=== PATIENT | female | born 1955 | race Caucasian/White ===

== ENCOUNTER 2017-02-09 10:53 | Observation (INO) | payer MEDICARE ==
[2017-02-09] MEDS ORDERED: NS 0.9% 1000 ML* 1,000 ML IV ONE (11:59)
[2017-02-09] MEDS ORDERED: Albuterol/Ipratropium NEB.SOL* Albuterol 2.5 MG/Ipratropium 0.5 MG 3 ML INH ONE ×2 (12:36→14:22)
[2017-02-09] MEDS ORDERED: methylPREDNISolone SOD SUCC* 125 MG 2 ML VIAL IV ONE (12:36)
--- NOTE | 2017-02-09 13:12 | RAD ---
HISTORY: Shortness of breath COMPARISONS: February 05, 2017 VIEWS: 2: Frontal dual-energy and lateral views of the chest. FINDINGS: CARDIOMEDIASTINAL SILHOUETTE: The cardiomediastinal silhouette is normal. FRANCY: The francy are normal. PLEURA: The costophrenic angles are sharp. No pleural abnormalities are noted. LUNG PARENCHYMA: The lungs are clear. There is improved aeration of the left lower lobe. ABDOMEN: The upper abdomen is clear. There is no subphrenic gas. BONES AND SOFT TISSUES: No bone or soft tissue abnormalities are noted. OTHER: None. IMPRESSION: NO ACTIVE CARDIOPULMONARY DISEASE.
[2017-02-09 13:14] LABS: Add Diff/Slide Review? Slide Review Added; Comments Flag Yes; Hematocrit 38 % (35-47); Mean Corpuscular HGB Conc 34 g/dl (31-36); Mean Corpuscular Hemoglobin 30 pg (27-31); Mean Corpuscular Volume 90 fL (80-97); Mean Platelet Volume 8 um3 (7.4-10.4); Red Blood Count 4.27 10^6/ul (4.0-5.4); Red Cell Distribution Width 13 % (10.5-15); White Blood Count 13.8 10^3/ul (3.5-10.8)
[2017-02-09 13:36] LABS: Albumin 3.4 g/dL (3.2-5.2); BUN/Creatinine Ratio 11.5 (8-20); C Reactive Protein 65.77 mg/L (< 5.00); Calcium 8.8 mg/dL (8.6-10.3); EGFR African American 128.2 (>60); EGFR Non-African American 99.7 (>60); Potassium 3.2 mmol/L (3.5-5.0); Total Protein 7.4 g/dL (6.4-8.9)
[2017-02-09 13:39] LABS: Troponin I 0.01 ng/mL (<0.04)
[2017-02-09 13:48] LABS: Urine Bacteria 1+ (Absent); Urine Bilirubin Negative (Negative); Urine Glucose Negative (Negative); Urine Nitrite Negative (Negative)
[2017-02-09 14:09] LABS: Immature Granulocytes 7 % (0-9); Metamyelocytes % 2 % (0-2); Myelocytes % 5 % (0-1); Neutrophil % 67 % (38-83)
[2017-02-09 14:11] LABS: RBC Morphology Normal (Normal)
[2017-02-09] MEDS ORDERED: Levofloxacin 750 MG IVPREMIX(* 750 MG/150 ML BAG IVPB ONE (15:27)
[2017-02-09] MEDS ORDERED: Potassium Chlor TAB* 20 MEQ TAB.ER PO ONE (15:27)
[2017-02-09] MEDS ORDERED: NS 0.9% 1000 ML* 1,000 ML IV SCH (15:45)
[2017-02-09] MEDS ORDERED: Albuterol/Ipratropium NEB.SOL* Albuterol 2.5 MG/Ipratropium 0.5 MG 3 ML INH PRN (16:21)
[2017-02-09] MEDS ORDERED: Benzonatate CAP* 100 MG PO PRN (16:42)
[2017-02-09] MEDS ORDERED: Albuterol/Ipratropium NEB.SOL* Albuterol 2.5 MG/Ipratropium 0.5 MG 3 ML INH SCH (19:00)
[2017-02-09] MEDS: Mometasone/Formoter 200/5 MDI INH SCH (20:34)
[2017-02-09] MEDS: Heparin VIAL(*) 5000 UNITS/ML VIAL (FIVE THOUSAND) SUBCUT SCH (20:47)
[2017-02-09] MEDS ORDERED: Atorvastatin* 20 MG TAB PO SCH (21:00)
--- NOTE | 2017-02-09 23:32 | HP ---
HISTORY AND PHYSICAL: DATE OF ADMISSION: 02/09/17 AGE: 61. PRIMARY CARE PROVIDER: Nghia Nuno MD ATTENDING PHYSICIAN: Nathan Grimm MD* (dictated by Cash Patterson NP) CHIEF COMPLAINT: Cough and weakness. HISTORY OF PRESENT ILLNESS: Ms. Maya is a 61-year-old female with past medical history significant for coronary artery disease status post ID with stent placement in 2007, who developed a nonproductive cough approximately 2 weeks ago. The patient was initially diagnosed with bronchitis by her primary care provider and then was later diagnosed with influenza and started on Tamiflu and prednisone. According to the patient, her flu-like symptoms have resolved, but she has continued to have a cough. She reports seeing her primary care provider several times and she states she had a chest x-ray on 08/14, at which time she was diagnosed with pneumonia. The patient was seen again by her primary care provider, Dr. Nuno, yesterday on 02/08/17 in which she was started on Levaquin. The patient has completed a course of azithromycin and Medrol Dosepak. The patient states that she was told to see her primary care provider in 2 days and if she was not feeling well, to report to the emergency room. While in the emergency room, the patient had labs significant for white blood cell count of 13.9, potassium of 3.2, chloride of 96, lactic acid of 2.2, CRP of 65.7. The patient had a chest x-ray showing no acute cardiopulmonary disease. While in the emergency room, the patient received 2 DuoNebs and IV Solu-Medrol. The patient had significant wheezing and was felt to have a COPD exacerbation. Hospitalists were asked to evaluate the patient for admission. The patient denies any recent fever, chills, chest pain, nausea, vomiting, diarrhea. The patient reports a poor appetite. She denies any urinary symptoms. The patient reports a nonproductive cough. The patient reports mild shortness of breath with exertion, but denies shortness of breath at rest. PAST MEDICAL HISTORY: 1. Coronary artery disease. 2. Myocardial infarction. 3. Hepatitis C. PAST SURGICAL HISTORY: Status post cardiac catheterization with a stent to the distal circumflex coronary artery in 2007. HOME MEDICATIONS: Include: 1. Aspirin 81 mg oral daily. 2. Simvastatin 40 mg oral daily. 3. Toprol-XL 25 mg oral daily. 4. Guaifenesin and codeine 2 teaspoons by mouth every 4 hours as needed for cough. 5. Levaquin 500 mg oral daily. 6. Tessalon 100 mg by mouth 3 times daily as needed for cough. ALLERGIES: IV CONTRAST DYE, the patient reports sensitivity to CODEINE if she takes it in large amounts, but is able to tolerate it in small amounts. FAMILY HISTORY: The patient reports significant family history of coronary artery disease including both of her parents, grandmother and uncle. The patient denies any family history of diabetes mellitus. The patient reports that her maternal grandmother had a history of stomach carcinoma. SOCIAL HISTORY: The patient is a former smoker, smoking approximately half a pack to a pack a day for the last 45 years. She reports quitting approximately 2 weeks ago when she became ill. The patient denies alcohol or recreational drug use. 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 The patient is and lives with her . Her , Rory Maya, will be her surrogate decision maker in the event she is unable to make decisions for herself. REVIEW OF SYSTEMS: I performed a 14-point review of systems. All the pertinent positives and negatives are mentioned in the history of present illness. The remaining review of systems is negative. PHYSICAL EXAMINATION GENERAL APPEARANCE: The patient is alert and pleasant, appears to be in no acute distress. VITAL SIGNS: Temperature 98.4, heart rate 77, respiratory rate 18, O2 sat 94% on 2 L via nasal cannula, blood pressure 100/59. HEENT: Normocephalic, atraumatic. Pupils are equal and reactive to light. Extraocular movements are intact. RESPIRATORY: There is no accessory muscle use, though lungs have decreased breath sounds, a few crackles heard in bilateral bases and a few scattered expiratory wheezes. CARDIOVASCULAR: Regular rate and rhythm. S1 and S2 present. There is no murmurs, rubs, or gallops heard. ABDOMEN: Soft, nontender, and nondistended. There are bowel sounds present x4. EXTREMITIES: There is no lower extremity edema. DP and PT pulses are 2+ and symmetric. MUSCULOSKELETAL: There is no clubbing or cyanosis noted. The patient exhibits good strength in all extremities. NEUROLOGICAL : The patient is alert and oriented x4. Cranial nerves II through XII are grossly intact. SKIN: There are no rashes or abnormalities seen. DIAGNOSTIC STUDIES/LABORATORY DATA: Sodium 135, potassium 2.2, chloride 96, CO2 30, BUN 7, creatinine 0.61, glucose 91. White blood cell count 13.8, hemoglobin 13.0, hematocrit 38, platelet count 422. Lactic acid 2.2, CRP 65.77. Urinalysis is significant for specific gravity of 1.005, blood 1+, urobilinogen positive, leukocyte esterase 3+, wbc's 3+, rbc's 3+, squamous epithelial cells present, bacteria 1+. EKG shows a sinus rhythm with rate of 55. No signs of acute ischemia noted. There are no previous EKGs for comparison. Chest x-ray from today showed radiologist's impression: No active cardiopulmonary disease. IMPRESSION: Ms. Maya is a 61-year-old female with past medical history significant for undiagnosed chronic obstructive pulmonary disease, coronary artery disease who presents to the emergency room with continued cough and weakness after being treated for influenza pneumonia as an outpatient. Hospitalists were asked to evaluate the patient for admission. ASSESSMENT: 1. Chronic obstructive pulmonary disease exacerbation. I suspect the patient' s cough is related to a chronic obstructive pulmonary disease exacerbation. We will continue the patient on Levaquin. She currently has a mildly elevated white blood cell count. I suspect this is caused by her recent steroid use. The patient reports a nonproductive cough. The patient will be started on Dulera and Spiriva and will have DuoNebs as needed. The patient will be given supplemental oxygen as needed. We will give the patient an additional liter of fluid overnight as she appears to be slightly on the dry side. She was noted to have O2 sat of 88% on room air. I do not suspect that her shortness of breath currently represents pulmonary embolism as the patient is not tachycardiac. The patient also had significant wheezing while in the emergency room. I do not feel that this is pulmonary embolism as the patient is not hypoxic or tachycardic. I suspect the lower oxygen saturation of 88% may likely be close to the patient's baseline oxygen saturation. 2. Hypokalemia. The patient will receive potassium supplement while in the emergency room. We will check the patient's magnesium and replace if needed and recheck labs in the morning. 3. History of coronary artery disease. The patient will be continued on her home aspirin, statin and beta-ten. 4. Fluids, electrolytes, and nutrition. The patient will be on a heart healthy diet. 5. DVT prophylaxis. The patient is at high risk and will receive subcu heparin. 6. Code status. Full code. 7. Disposition: Observation for chronic obstructive pulmonary disease exacerbation. TIME SPENT: Time for this admission was 60 minutes and 35 minutes were spent with the patient discussing medications, past medical history and the events leading up to her arrival today and performing a physical examination. The case was reviewed with the attending, Dr. Grimm, who agrees with the plan of care. CASH CANNON NP CC: Nghia Nuno MD* [id number]/CPS #: [id number] MTDD
[2017-02-09] MEDS: guaiFENesin/CODIEN 100MG-10MG* 5 ML UDC PO PRN (23:37)
[2017-02-10] MEDS: guaiFENesin/CODIEN 100MG-10MG* 5 ML UDC PO PRN (03:46)
[2017-02-10 06:47] LABS: Hematocrit 36 % (35-47); Hemoglobin 12.4 g/dl (12.0-16.0); Mean Corpuscular HGB Conc 34 g/dl (31-36); Mean Corpuscular Hemoglobin 31 pg (27-31); Mean Corpuscular Volume 90 fL (80-97); Mean Platelet Volume 8 um3 (7.4-10.4); Red Blood Count 4.05 10^6/ul (4.0-5.4); Red Cell Distribution Width 13 % (10.5-15); White Blood Count 15.1 10^3/ul (3.5-10.8)
[2017-02-10 06:53] LABS: Add Diff/Slide Review? Slide Review Added; Comments Flag Yes
[2017-02-10 06:58] LABS: BUN/Creatinine Ratio 18.2 (8-20); Calcium 8.8 mg/dL (8.6-10.3); EGFR African American 144.5 (>60); EGFR Non-African American 112.4 (>60); Potassium 4.1 mmol/L (3.5-5.0)
[2017-02-10 07:20] VITALS: BP 123/44
[2017-02-10] MEDS: Heparin VIAL(*) 5000 UNITS/ML VIAL (FIVE THOUSAND) SUBCUT SCH (07:29)
[2017-02-10] MEDS: Mometasone/Formoter 200/5 MDI INH SCH (08:02)
--- NOTE | 2017-02-10 08:10 | ED ---
Radha Gonsalves Matthew, scribed for Antony Braswell MD on 02/09/17 at 1159 . Respiratory - HPI Summary HPI Summary: A 61 y/o female presents to the ED with a non-productive cough for the past 2 weeks. The patient states she was initially Dx with bronchitis but was later Dx by her PCP with the flu and given Tamiflu and prednisone. The flu like symptoms have improved according to the patient, but she continues to have a cough. She was then started on zithromax, which she has finished and now is on Levaquin. She denies PMHx of COPD and asthma. The patient has a Hx of one stent. FHx of CAD. The patient is an every day smoker. - History of Current Complaint Chief Complaint: EDUpperRespComplaint Stated Complaint: COUGH/WEAKNESS Time Seen by Provider: 02/09/17 11:47 Hx Obtained From: Patient Onset/Duration: Gradual Onset, Lasting Weeks, Still Present Timing: Constant Initial Severity: Moderate Current Severity: Moderate Pain Intensity: 0 Character: Cough (Nonproductive) Associated Signs and Symptoms: Negative - Allergy/Home Medications Allergies/Adverse Reactions: Allergies Allergy/AdvReac Type Severity Reaction Status Date / Time dye Allergy Rash Uncoded 02/09/17 16:06 Home Medications: Home Medications Aspirin EC Low Dose* [Ecotrin EC Low Dose 81 MG*] 81 mg PO DAILY 02/09/17 [ History Confirmed 02/09/17] Benzonatate CAP* [Tessalon 100 MG CAP*] 100 - 200 mg PO TID PRN 02/09/17 [ History Confirmed 02/09/17] Guaifenesin-Codeine [Cheratussin AC] 2 teasp PO Q4HR PRN 02/09/17 [History Confirmed 02/09/17] Levofloxacin TAB* [Levaquin TAB*] 500 mg PO DAILY 02/09/17 [History Confirmed ] Metoprolol Succinate XL TAB* [Toprol XL TAB*] 25 mg PO DAILY 02/09/17 [History Confirmed 02/09/17] Simvastatin (NF) [Zocor (NF)] 40 mg PO EVERY OTHER DAY 02/09/17 [History Confirmed 02/09/17] Simvastatin (NF) [Zocor (NF)] 80 mg PO EVERY OTHER DAY 02/09/17 [History Confirmed 02/09/17] PMH/Surg Hx/FS Hx/Imm Hx Cardiovascular History: Reports: Hx Hypercholesterolemia, Hx Hypertension, Other Cardiovascular Problems/Disorders - Hx of one stent Neurological History: Denies: Other Neuro Impairments/Disorders Infectious Disease History: No Infectious Disease History: Reports: Hx Hepatitis - C Denies: Traveled Outside the [place] in Last 30 Days - Family History Known Family History: Positive: Cardiac Disease - Social History Alcohol Use: None Substance Use Type: Reports: None Smoking Status (MU): Current Every Day Smoker Type: Cigarettes - 10 per day Review of Systems Constitutional: Negative Eyes: Negative ENT: Negative Cardiovascular: Negative Positive: Cough - non-productive Gastrointestinal: Negative Genitourinary: Negative Musculoskeletal: Negative Skin: Negative Neurological: Negative Psychological: Normal All Other Systems Reviewed And Are Negative: Yes Physical Exam - Summary Physical Exam Summary: VITAL SIGNS: Reviewed. GENERAL: Patient is a well developed and nourished female with some distress secondary to the shortness of breath. However, she is able to speak in full sentences. HEAD AND FACE: Normocephalic and atraumatic. EYES: PERRLA, EOMI x 2, No injected conjunctiva. EARS: Hearing grossly intact. Ear canals and tympanic membranes WNL MOUTH: Dry oral mucosa. NECK: Supple, trachea is midline, no adenopathy, no JVD, no carotid bruit. CHEST: Symmetric, No intercostal or abdominal retraction, LUNGS: Diffuse bilateral wheezing and decreased breath sounds.No crackles. CVS: RRR,, S1 and S2 present, no murmurs or gallops appreciated. ABDOMEN: Soft, non-tender. No signs of distention. Positive BS. No rebound, no guarding, and no masses palpated. EXTREMITIES: FROM in all major joints, no edema, no cyanosis or clubbing. NEURO: Alert and oriented x 3. No acute neurological deficits. Speech is normal and follows commands. SKIN: Dry and warm Triage Information Reviewed: Yes Vital Signs On Initial Exam: Initial Vitals Temp Pulse Resp BP Pulse Ox 98.4 F 79 20 126/52 88 02/09/17 10:59 02/09/17 10:59 02/09/17 10:59 02/09/17 10:59 02/09/17 10:59 Vital Signs Reviewed: Yes Diagnostics - Vital Signs Vital Signs Temp Pulse Resp BP Pulse Ox 02/09/17 11:32 20 02/09/17 11:25 66 94 02/09/17 11:20 98.4 F 79 20 124/67 88 02/09/17 11:16 98.4 F 79 20 126/52 92 02/09/17 10:59 98.4 F 79 20 126/52 88 - Laboratory Result Diagrams: 02/10/17 06:24 02/10/17 06:24 Lab Statement: Any lab studies that have been ordered have been reviewed, and results considered in the medical decision making process. - Radiology CXR Xray Interpretation: No Acute Changes - IMPRESSION: NO ACTIVE CARDIOPULMONARY DISEASE. Radiology Interpretation Completed By: Radiologist - EKG 11:29 Cardiac Rate: NL - 65 bpm EKG Rhythm: Sinus Rhythm EKG Interpretation: No ST elevation Disposition - Course Assessment/Plan: A 61 y/o female presents to the ED with a non-productive cough for the past 2 weeks. The patient states she was initially Dx with bronchitis but was later Dx by her PCP with the flu and given Tamiflu and prednisone. The flu like symptoms have improved according to the patient, but she continues to have a cough. She was then started on Zithromax, which she has finished and now is on Levaquin. She denies PMHx of COPD and asthma. The patient has a Hx of one stent. FHx of CAD. The patient is an every day smoker. Blood work WNL except WBC of 13.9. Potassium 3.2, chloride 96, lactic acid 2.2 CRP 65.7. CXR shows no acute cardiopulmonary disease. In the ED course, the patient was given multiple DuoNeb and solumedrol. I believe the patient is having wheezing secondary to COPD excerebration. After these medications, the patient continued to have wheezing and is not feeling well. So, I discussed my physical exam findings with Dr. Rock who accepted the patient for admission. The patient was given one dose of Levaquin and potassium. I dont believe the patient has a PE since the patient is not tachycardiac or hypoxic. No ACS since the patient is not having chest pain and the troponin is negative. Patient is hemodynamically stable and A&Ox3. - Differential Dx - Cardiopulmonary Differential Diagnoses - Cardiopulmonary: Bronchitis, CHF, Exacerbation Of COPD , Influenza - Diagnoses Provider Diagnoses: COPD exacerbation - Physician Notifications Discussed Care Of Patient With: Dr. Rock (Hospitalist) at 14:54 -- Notified of patient's history and will admit the patient into his services. Discharge - Discharge Plan Condition: Stable Disposition: ADMITTED TO [facility] documentation as recorded by the Radha barron Matthew accurately reflects the service I personally performed and the decisions made by me, Antony Braswell MD.
[2017-02-10] MEDS ORDERED: Tiotropium CAP.INH* CAP.INH/18 MCG INH SCH (09:00)
[2017-02-10] MEDS ORDERED: methylPREDNISolone SOD SUCC* 125 MG 2 ML VIAL IV SCH (09:00)
[2017-02-10] MEDS ORDERED: Spiriva Inhaler DEVICE* 1 EACH DEVICE INH ONE (09:00)
[2017-02-10] MEDS ORDERED: Aspirin EC Low Dose* 81 MG TAB.EC PO SCH (09:00)
[2017-02-10] MEDS ORDERED: Metoprolol Succinate XL TAB* 25 MG PO SCH (09:00)
--- NOTE | 2017-02-10 09:57 | PN ---
Subjective Date of Service: 02/10/17 Interval History: Patient seen and examined at bedside. Pt states that she is feeling better today and is anxious to get home. Occasionally has a moist non-productive cough. Denies fever, chills, shortness of breath at rest, chest discomfort, N/V/ D. Pt reports that she has been able to ambulate in the halls with minimal shortness of breath. Family History: Unchanged from Admission Social History: Unchanged from Admission Past Medical History: Unchanged from Admission Objective Active Medications: Albuterol/Ipratropium (Duoneb (Albuterol 2.5 Mg/Ipratropium 0.5 Mg)) 1 neb INH Q4H PRN Reason: SOB/WHEEZING Aspirin (Aspirin Ec Low Dose*) 81 mg PO DAILY SHASHANK Atorvastatin Calcium (Lipitor*) 20 mg PO BEDTIME SHASHANK Benzonatate (Tessalon Cap*) 100 mg PO TID PRN Reason: COUGH Guaifenesin/Codeine Phosphate (Robitussin Ac 100mg-10mg*) 10 ml PO Q4HR PRN Reason: COUGH Heparin Sodium (Porcine) (Heparin Vial(*)) 5,000 units SUBCUT Q12HR SHASHANK Levofloxacin/Dextrose (Levaquin 750 Mg Ivpremix(*)) 750 mg in 150 mls @ 100 mls /hr IVPB Q24H SHASHANK Methylprednisolone Sodium Succinate (Solu-Medrol*) 60 mg IV DAILY SHASHANK Metoprolol Succinate (Toprol Xl Tab*) 25 mg PO DAILY SHASHANK Mometasone Furoate/Formoterol Fumar (Dulera 200/5 Mdi*) 2 puff INH BID SHASHANK Tiotropium [place] (Spiriva Cap.Inh*) 1 cap INH DAILY SHASHANK Vital Signs 02/09/17 02/09/17 02/09/17 15:00 15:14 15:30 Temperature Pulse Rate 85 Respiratory 19 18 16 Rate Blood Pressure 100/59 (mmHg) O2 Sat by Pulse 90 Oximetry 02/09/17 02/09/17 02/09/17 15:45 15:46 16:00 Temperature Pulse Rate 84 87 Respiratory 18 23 23 Rate Blood Pressure 118/54 119/52 (mmHg) O2 Sat by Pulse 91 90 Oximetry 02/09/17 02/09/17 02/09/17 16:15 16:30 16:42 Temperature 98.3 F Pulse Rate 92 Respiratory 16 21 18 Rate Blood Pressure 141/58 (mmHg) O2 Sat by Pulse 95 Oximetry 02/09/17 02/09/17 02/09/17 17:21 19:45 20:35 Temperature 98.3 F 99.1 F Pulse Rate 92 91 92 Respiratory 18 16 Rate Blood Pressure 141/58 116/61 (mmHg) O2 Sat by Pulse 95 91 94 Oximetry 02/09/17 02/10/17 02/10/17 23:28 03:22 06:00 Temperature 97.9 F 98.0 F Pulse Rate 80 69 70 Respiratory 16 16 Rate Blood Pressure 134/56 149/87 (mmHg) O2 Sat by Pulse 95 92 97 Oximetry 02/10/17 02/10/17 07:20 08:06 Temperature 98.0 F Pulse Rate 91 78 Respiratory 15 Rate Blood Pressure 123/44 (mmHg) O2 Sat by Pulse 98 94 Oximetry Oxygen Devices in Use Now: None Appearance: NAD, sitting up in bed Eyes: No Scleral Icterus Ears/Nose/Mouth/Throat: Mucous Membranes Moist Respiratory: Symmetrical Chest Expansion and Respiratory Effort, Clear to Auscultation - , few scattered crackles in the bases Cardiovascular: NL Sounds; No Murmurs; No JVD, RRR Abdominal: NL Sounds; No Tenderness; No Distention Extremities: No Edema Skin: No Rash or Ulcers Neurological: Alert and Oriented x 3, NL Muscle Strength and Tone Lines/Tubes/Other Access: Clean, Dry and Intact Peripheral IV - site benign Nutrition: Taking PO's Result Diagrams: 02/10/17 06:24 02/10/17 06:24 Assess/Plan/Problems-Billing Assessment: Ms. Maya is a 61 yo female with PMH significant for CAD and presumed undiagnosed COPD who presented to the emergency room with complaints of cough and weakness and was admitted as an OBV for a COPD exacerbation. - Patient Problems (1) COPD exacerbation Code(s): J44.1 - CHRONIC OBSTRUCTIVE PULMONARY DISEASE W (ACUTE) EXACERBATION SNOMED Code(s): 957360393 Comment: - Patient feels improved this morning - Afebrile - Leukocytosis, suspect this is related to recent steroid use - Denies shortness of breath and has been able to ambulate in the halls - Continue Levaquin and Prednisone taper - Continue Dulera and Spiriva (2) Hypokalemia Code(s): E87.6 - HYPOKALEMIA SNOMED Code(s): 38682899 Comment: - Resolved (3) History of coronary artery disease Code(s): Z86.79 - PERSONAL HISTORY OF OTHER DISEASES OF THE CIRCULATORY SYSTEM SNOMED Code(s): 203156414 Comment: - Continue ASA, statin and beta-ten (4) DVT prophylaxis Code(s): TJN3689 - SNOMED Code(s): 176630899 (5) Full code status Code(s): Z78.9 - OTHER SPECIFIED HEALTH STATUS SNOMED Code(s): 844620722 Status and Disposition: OBV. Stable for discharge to home today.
[2017-02-10] MEDS ORDERED: Levofloxacin 750 MG IVPREMIX(* 750 MG/150 ML BAG IVPB SCH (17:00)
--- NOTE | 2017-02-11 06:03 | DS ---
DISCHARGE SUMMARY: DATE OF ADMISSION: 02/09/17 DATE OF DISCHARGE: 02/10/17 ATTENDING PHYSICIAN: Teto Vital MD* (dictated by Cash Patterson NP) PRIMARY CARE PROVIDER: Nghia Nuno MD PRIMARY DIAGNOSES: 1. Chronic obstructive pulmonary disease exacerbation. 2. Hypokalemia. SECONDARY DIAGNOSIS: History of coronary artery disease. STUDIES WHILE IN THE HOSPITAL: Chest x-ray on . Radiologist's impression: No active cardiopulmonary disease. DISCHARGE MEDICATIONS: New home medications: 1. Dulera 200/5 mg 2 puffs inhalation twice daily. 2. Spiriva 1 capsule inhalation daily. 3. Prednisone 20 mg tablets take 60 mg oral once daily for 2 days followed by 50 mg oral daily for 2 days, 40 mg oral daily for 2 days, 30 mg oral daily for 2 days, 20 mg oral daily for 2 days, 10 mg oral daily for 2 days, and the stop. Continued home medications: 1. Aspirin 81 mg oral daily. 2. Simvastatin 80 mg oral every other day. 3. Simvastatin 40 mg oral every other day. 4. Metoprolol succinate XL 25 mg oral daily. 5. Guaifenesin with codeine 2 teaspoons oral every 4 hours as needed for cough. 6. Levaquin 500 mg oral daily for 5 days. 7. Tessalon [place] 100-200 mg oral 3 times daily as needed for cough. HISTORY OF PRESENT ILLNESS/HOSPITAL COURSE: Ms. Maya is a 61-year-old female with past medical history significant for coronary artery disease status post [place] with stent placement in 2007, who reports developing a cough approximately 2 weeks ago. The patient reports initially being diagnosed with bronchitis by her primary care provider and then being diagnosed with influenza and started on Tamiflu and prednisone. The patient states that she had resolution of her flu-like symptoms, but continued to have a cough. She again saw her primary care provider several times. On February 05, she had a chest x- ray and was diagnosed with pneumonia. The patient saw her primary care provider on February 08 and was started on Levaquin. It is also noted that the patient also just completed a course of azithromycin and Medrol Dosepak. The patient continues to have cough and generally just feeling weak and not well. She decided to present to the emergency room for further evaluation of her symptoms. While in the emergency room, the patient had labs that were significant for white blood cell count of 13.9, potassium of 3.2, chloride of 96, lactic acid of 2.2, and CRP of 65.7. The patient had a chest x-ray showing no acute cardiopulmonary disease. The patient received DuoNebs and had significant wheezing. It was felt that the patient had a COPD exacerbation. The hospitalists were asked to evaluate the patient for admission. While in the hospital, the patient was placed on Solu-Medrol and continued on IV Levaquin. The patient was requiring a small amount of supplemental oxygen in the emergency room for an O2 sat of 88%. The patient was able to be weaned off of supplemental oxygen with oxygen saturations 92% to 98% on room air. The patient felt that her cough was about the same, but she was feeling better and wanting to go home. The patient had repeat labs this morning with a white blood cell count elevated from yesterday to 15.1. It is felt that this was most likely due to the patient's steroid use. She has remained afebrile during her stay. The patient's hypokalemia resolved. The patient's lactic acid returned to normal at 1.7 after receiving some IV hydration overnight and in the emergency room. Ms. Maya is stable for discharge to home today. Vital signs are as follows. Temperature 98.0, heart rate 78, respiratory rate 16, O2 sat 94% on room air, and blood pressure 123/44. DISCHARGE PLAN: Ms. Maya will be discharged to home. Activity as tolerated. She should be on a heart-healthy diet. The patient had been started on Dulera and Spiriva for her COPD and for her COPD exacerbation, she is continued on a prednisone taper and should complete her course of Levaquin that she already has a prescription for at home. The patient has an appointment with her primary care provider, Dr. Nghia Nuno, on February 13 at 3: 20 p.m. The patient has been asked to return to the emergency room for increased shortness of breath or chest discomfort. This is the summarized report of a complex medical history and hospital stay. For further details, please see the entire medical record. TIME SPENT: Time for this discharge was 50 minutes and 25 minutes was spent face- to-face with the patient, discussing discharge plans and instructions. CONDITION ON DISCHARGE: Stable. CASH CANNON NP CC: Dr. Nghia Nuno* [id number]/CPS #: [id number] MTDD
== END 2017-02-10 10:20 | disposition home or self-care (01) ==
LOC: ED 10:53 → MED 14:55
PROVIDERS: ADMIT Internal Medicine; ATTEND Internal Medicine
DX: J44.1 Chronic obstructive pulmonary disease with (acute) exacerbation (principal); E87.6 Hypokalemia; I25.10 Atherosclerotic heart disease of native coronary artery without angina pectoris; Z95.5 Presence of coronary angioplasty implant and graft; I25.2 Old myocardial infarction; B19.20 Unspecified viral hepatitis C without hepatic coma; Z87.891 Personal history of nicotine dependence; Z79.82 Long term (current) use of aspirin; Z79.899 Other long term (current) drug therapy; Z91.041 Radiographic dye allergy status
CPT/HCPCS: 36415; 71020; 80048; 80053; 81003; 81015; 82550; 82553; 83605; 83735; 83874; 83880; 84484; 85025; 85730; 86140; 87040; 87086; 93005; 94640; 94760; 96361; 96372; 96374; 96375; 96376; 99284; A9270-GY; G0378; J1644; J2930